=== PATIENT | female | born 1965 | race Caucasian/White ===

== ENCOUNTER 2017-06-18 19:32 | Emergency (ER) | payer OTHER ==
[~2017-06-18] VITALS: Ht 162.6 cm; Wt 72.6 kg
[~2017-06-18 19:32] MED LIST: CIPRO250 M2 PO; DIFLUCAN150 M1 PO; FLAGYL500 MG PO; HYDROXYZINE HCL25 M2 PO; LEVEMIR SUBQ; LIPITOR 20 MG T20 M1 PO; NEURONTIN 400400 M1 PO; NOVOLOG100 UNIT/1 SUBQ; NYSTATIN15 G3 TOP; OMEPRAZOLE20 M2 PO; PHENERGAN 25 MG25 M1 PO; ULTRAM 50MG TAB50 MG PO
[2017-06-18 20:03] LABS: INFLUENZA A ANTIGEN None Detected (None Detect); INFLUENZA B ANTIGEN None Detected (None Detect)
[2017-06-18] MEDS ORDERED: PROAIR HFA8.5 GM INH (21:09)
[2017-06-18] MEDS ORDERED: PROMETHAZINE/C118 ML PO (21:09)
[2017-06-18] MEDS ORDERED: PREDNISONE50 MG PO (21:09)
[2017-06-18] MEDS ORDERED: HYDROCODONE-AP1 EAC6 PO (21:42)
[2017-06-18 22:00] VITALS: BP 135/85
--- NOTE | 2017-06-19 14:29 | EKG ---
[place] [address] ELECTROCARDIOGRAM REPORT Name: PROSPER CHOW Room: [facility]#: [id number] Admission: 06/18/17 Attend Phys: Discharge: 06/18/17 Date of : 69 Report #: [id number] THIS REPORT FOR: //name// [facility] ED Test Date: 2017-06-18 Test Time: 19:40:36 Pat Name: PROSPER CHOW Department: Room: Gender: F Dobie Man: TV : 1965 Requested By: Azra Geronimo Order Number: [id number] Reading MD: Dieter Nagy Measurements Intervals Miller Rate: 118 P: 55 IA: 165 QRS: 19 QRSD: 81 T: 6 QT: 322 QTc: 452 Interpretive Statements Sinus tachycardia LAE, consider biatrial enlargement Probable anterior infarct, old Baseline wander in lead(s) V3,V6 Compared to ECG 04/03/2017 20:31:57 Sinus rhythm no longer present Electronically Signed On 06-19-2017 14:29:44 ROLLING ATTENDANT by Dieter Nagy [email or web address] <ELECTRONICALLY SIGNED> By: Dieter Nagy MD, [facility] 06/19/17 [facility]9 1940 Dieter Nagy MD, [facility] /EPI
== END 2017-06-18 22:01 | disposition home or self-care (01) ==
LOC: M.ERS 19:32
PROVIDERS: Emergency Medicine
DX: J06.9 Acute upper respiratory infection, unspecified (principal); R09.1 Pleurisy; I10 Essential (primary) hypertension; E78.00 Pure hypercholesterolemia, unspecified; E11.40 Type 2 diabetes mellitus with diabetic neuropathy, unspecified; F17.210 Nicotine dependence, cigarettes, uncomplicated; Z79.4 Long term (current) use of insulin; Z98.890 Other specified postprocedural states; Z90.710 Acquired absence of both cervix and uterus; Z90.49 Acquired absence of other specified parts of digestive tract

== ENCOUNTER 2017-10-17 21:33 | Emergency (ER) | payer OTHER ==
[~2017-10-17] VITALS: Ht 165.1 cm; Wt 72.6 kg
[~2017-10-17 21:33] MED LIST changes: +HYDROCODONE-AP1 EAC6 PO; +PREDNISONE50 MG PO; +PROAIR HFA8.5 GM INH; +PROMETHAZINE/C118 ML PO
[2017-10-17 21:56] LABS: URINE BILIRUBIN NEGATIVE (Negative); URINE BLOOD 2+ (Negative); URINE CLARITY CLEAR; URINE COLOR YELLOW; URINE GLUCOSE-RANDOM NEGATIVE (Negative); URINE KETONES NEGATIVE (Negative); URINE LEUKOCYTES-REFLEX TRACE (Negative); URINE NITRITE-REFLEX NEGATIVE (Negative); URINE PROTEIN TRACE (Negative); URINE UROBILINOGEN 0.2 E.U./dl (0.2-1.0)
[2017-10-17 22:20] LABS: CASTS None Seen /LPF (None Seen); MUCUS 0-3 Light strn/LPF (None Seen); SQUAMOUS >10 Many /LPF (0-3)
[2017-10-17 22:23] LABS: CRYSTALS None Seen /LPF (None Seen)
[2017-10-17 22:25] LABS: ABSOLUTE BASOPHILS 0.2 thou/uL (0.0-0.2); ABSOLUTE EOSINOPHILS 0.3 thou/uL (0.0-0.7); ABSOLUTE LYMPHOCYTES 3.3 thou/uL (0.8-5.3); ABSOLUTE MONOCYTES 0.9 thou/uL (0.0-1.2); ABSOLUTE NEUTROPHILS 6.6 thou/uL (1.6-8.1); BASOPHILS 1.3 %; EOSINOPHILS 3.1 %; HEMATOCRIT 42.9 % (37.0-47.0); HEMOGLOBIN 14.9 gm/dL (12.0-15.0); LYMPHOCYTES 29.4 %; MCHC 34.7 g/dL (28.0-37.0); MONOCYTES 7.7 %; MPV 8.5 fl. (7.2-11.1); NUCLEATED RBCS 0 /100WBC; PLATELET COUNT* 166 thou/uL (150-400); POLYS 58.5 %; RBC 4.67 mil/uL (4.20-5.00); RDW-CV 13.8 % (10.5-14.5); WBC 11.3 thou/uL (4.0-11.0)
[2017-10-17 22:33] LABS: CREATININE 0.9 mg/dL (0.6-1.3); POTASSIUM 4.7 mmol/L (3.5-5.1)
[2017-10-17 22:37] LABS: ALBUMIN 3.5 g/dL (3.4-5.0); TOTAL BILIRUBIN 0.4 mg/dL (<0.1-1.0); TOTAL PROTEIN 7.1 g/dL (6.4-8.2)
[2017-10-18] MEDS ORDERED: HYDROCODONE-AP1 EAC6 PO (00:50)
[2017-10-18] MEDS ORDERED: ZOFRAN ODT4 MG PO (00:50)
[2017-10-18] MEDS ORDERED: CIPROFLOXACIN500 M1 PO (00:50)
[2017-10-18 01:00] VITALS: BP 118/69
== END 2017-10-18 01:21 | disposition home or self-care (01) ==
LOC: M.ERS 21:33
PROVIDERS: Emergency Medicine
DX: N12 Tubulo-interstitial nephritis, not specified as acute or chronic (principal); E11.40 Type 2 diabetes mellitus with diabetic neuropathy, unspecified; I10 Essential (primary) hypertension; E78.00 Pure hypercholesterolemia, unspecified; F17.210 Nicotine dependence, cigarettes, uncomplicated; Z90.49 Acquired absence of other specified parts of digestive tract; Z90.710 Acquired absence of both cervix and uterus; Z79.4 Long term (current) use of insulin

== ENCOUNTER 2017-10-29 18:18 | Emergency (ER) | payer OTHER ==
[~2017-10-29] VITALS: Ht 165.1 cm; Wt 72.6 kg
[~2017-10-29 18:18] MED LIST changes: +CIPROFLOXACIN500 M1 PO; +ZOFRAN ODT4 MG PO
[2017-10-29] MEDS ORDERED: NOVOLOG100 UNIT/1 SUBQ (18:35)
[2017-10-29] MEDS ORDERED: IBUPROFEN 800800 M1 PO (18:36)
[2017-10-29 18:38] LABS: URINE BILIRUBIN NEGATIVE (Negative); URINE BLOOD NEGATIVE (Negative); URINE CLARITY CLEAR; URINE COLOR YELLOW; URINE GLUCOSE-RANDOM NEGATIVE (Negative); URINE KETONES NEGATIVE (Negative); URINE LEUKOCYTES-REFLEX NEGATIVE (Negative); URINE NITRITE-REFLEX NEGATIVE (Negative); URINE PROTEIN NEGATIVE (Negative); URINE SPECIFIC GRAVITY 1.015 (1.005-1.030); URINE UROBILINOGEN 0.2 E.U./dl (0.2-1.0)
[2017-10-29 18:49] LABS: ABSOLUTE BASOPHILS 0.1 thou/uL (0.0-0.2); ABSOLUTE EOSINOPHILS 0.3 thou/uL (0.0-0.7); ABSOLUTE LYMPHOCYTES 2.7 thou/uL (0.8-5.3); ABSOLUTE MONOCYTES 0.6 thou/uL (0.0-1.2); ABSOLUTE NEUTROPHILS 6.3 thou/uL (1.6-8.1); BASOPHILS 0.5 %; EOSINOPHILS 3.2 %; HEMATOCRIT 42.8 % (37.0-47.0); HEMOGLOBIN 14.9 gm/dL (12.0-15.0); LYMPHOCYTES 26.8 %; MCHC 34.9 g/dL (28.0-37.0); MCV 91.8 fL (80.0-100.0); MONOCYTES 6.2 %; MPV 8.7 fl. (7.2-11.1); NUCLEATED RBCS 0 /100WBC; PLATELET COUNT* 161 thou/uL (150-400); POLYS 63.3 %; RBC 4.66 mil/uL (4.20-5.00); RDW-CV 13.6 % (10.5-14.5)
[2017-10-29 18:56] LABS: CALCIUM 8.6 mg/dL (8.5-10.1); CREATININE 0.7 mg/dL (0.6-1.3); POTASSIUM 3.6 mmol/L (3.5-5.1)
[2017-10-29 19:00] LABS: ALBUMIN 3.4 g/dL (3.4-5.0); TOTAL BILIRUBIN 0.3 mg/dL (<0.1-1.0); TOTAL PROTEIN 7.1 g/dL (6.4-8.2)
[2017-10-29] MEDS ORDERED: HYDROCODONE-AP1 EAC6 PO (19:39)
[2017-10-29] MEDS ORDERED: PHENERGAN 25 MG25 M1 PO (19:39)
[2017-10-29 19:56] VITALS: BP 136/64
== END 2017-10-29 20:05 | disposition home or self-care (01) ==
LOC: M.ERS 18:18
PROVIDERS: Physician Assistant
DX: R10.9 Unspecified abdominal pain (principal); I10 Essential (primary) hypertension; E11.21 Type 2 diabetes mellitus with diabetic nephropathy; E78.00 Pure hypercholesterolemia, unspecified; F17.210 Nicotine dependence, cigarettes, uncomplicated; Z79.4 Long term (current) use of insulin; Z90.49 Acquired absence of other specified parts of digestive tract; Z90.710 Acquired absence of both cervix and uterus

== ENCOUNTER 2018-02-12 18:31 | Emergency (ER) | payer OTHER ==
[~2018-02-12] VITALS: Ht 165.1 cm; Wt 74.5 kg
[~2018-02-12 18:31] MED LIST changes: +IBUPROFEN 800800 M1 PO
[2018-02-12] MEDS ORDERED: TRAMADOL 50 MG50 MG PO (19:47)
[2018-02-12 20:25] VITALS: BP 129/64
== END 2018-02-12 20:25 | disposition home or self-care (01) ==
LOC: M.ERS 18:31
DX: M25.562 Pain in left knee (principal); F17.210 Nicotine dependence, cigarettes, uncomplicated; E11.40 Type 2 diabetes mellitus with diabetic neuropathy, unspecified; I10 Essential (primary) hypertension; E78.00 Pure hypercholesterolemia, unspecified; Z90.49 Acquired absence of other specified parts of digestive tract; Z90.710 Acquired absence of both cervix and uterus; Z79.4 Long term (current) use of insulin

== ENCOUNTER 2018-02-26 23:54 | Emergency (ER) | payer OTHER ==
[~2018-02-26] VITALS: Ht 165.1 cm; Wt 76.2 kg
[~2018-02-26 23:54] MED LIST changes: +TRAMADOL 50 MG50 MG PO
[2018-02-27] MEDS ORDERED: TORADOL 10 MG T10 MG PO (01:30)
[2018-02-27] MEDS ORDERED: KEFLEX500 M2 PO (01:30)
[2018-02-27 02:30] VITALS: BP 117/78
== END 2018-02-27 02:30 | disposition home or self-care (01) ==
LOC: M.ERS 23:54
DX: S40.861A Insect bite (nonvenomous) of right upper arm, initial encounter (principal); Z90.710 Acquired absence of both cervix and uterus; I10 Essential (primary) hypertension; E78.00 Pure hypercholesterolemia, unspecified; E11.40 Type 2 diabetes mellitus with diabetic neuropathy, unspecified; F17.210 Nicotine dependence, cigarettes, uncomplicated; Z79.4 Long term (current) use of insulin; Z90.49 Acquired absence of other specified parts of digestive tract; W57.XXXA Bitten or stung by nonvenomous insect and other nonvenomous arthropods, initial encounter; Y93.89 Activity, other specified; Y92.89 Other specified places as the place of occurrence of the external cause; Y99.8 Other external cause status

== ENCOUNTER 2018-03-01 12:03 | Emergency (ER) | payer OTHER ==
[~2018-03-01] VITALS: Ht 165.1 cm; Wt 73.9 kg
[~2018-03-01 12:03] MED LIST changes: +KEFLEX500 M2 PO; +TORADOL 10 MG T10 MG PO
[2018-03-01 13:35] LABS: ABSOLUTE BASOPHILS 0.1 thou/uL (0.0-0.2); ABSOLUTE EOSINOPHILS 0.4 thou/uL (0.0-0.7); ABSOLUTE LYMPHOCYTES 1.7 thou/uL (0.8-5.3); ABSOLUTE MONOCYTES 0.6 thou/uL (0.0-1.2); ABSOLUTE NEUTROPHILS 5.5 thou/uL (1.6-8.1); BASOPHILS 1.4 %; EOSINOPHILS 4.8 %; HEMATOCRIT 42.2 % (37.0-47.0); HEMOGLOBIN 14.6 gm/dL (12.0-15.0); LYMPHOCYTES 20.9 %; MCH 31.7 pg (26.0-34.0); MCHC 34.6 g/dL (28.0-37.0); MCV 91.4 fL (80.0-100.0); MONOCYTES 6.9 %; MPV 8.7 fl. (7.2-11.1); NUCLEATED RBCS 0 /100WBC; PLATELET COUNT* 157 thou/uL (150-400); RBC 4.61 mil/uL (4.20-5.00); RDW-CV 13.4 % (10.5-14.5); WBC 8.3 thou/uL (4.0-11.0)
[2018-03-01 13:43] LABS: CALCIUM 8.5 mg/dL (8.5-10.1); CREATININE 0.7 mg/dL (0.6-1.3); POTASSIUM 3.1 mmol/L (3.5-5.1)
[2018-03-01 14:03] LABS: ALBUMIN 3.2 g/dL (3.4-5.0); TOTAL BILIRUBIN 0.5 mg/dL (<0.1-1.0); TOTAL PROTEIN 6.8 g/dL (6.4-8.2)
[2018-03-01] MEDS ORDERED: NORCO 5-325 TA1 EACH PO (14:52)
[2018-03-01] MEDS ORDERED: BACTRIM DS TAB1 EAC1 PO (14:52)
[2018-03-01 15:18] VITALS: BP 157/79
== END 2018-03-01 15:13 | disposition home or self-care (01) ==
LOC: M.ERS 12:03
PROVIDERS: Physician Assistant Surgical
DX: T63.301A Toxic effect of unspecified spider venom, accidental (unintentional), initial encounter (principal); Y92.89 Other specified places as the place of occurrence of the external cause; E11.9 Type 2 diabetes mellitus without complications; I10 Essential (primary) hypertension; E78.00 Pure hypercholesterolemia, unspecified; Z90.49 Acquired absence of other specified parts of digestive tract; Z90.710 Acquired absence of both cervix and uterus; F17.210 Nicotine dependence, cigarettes, uncomplicated

== ENCOUNTER 2018-03-04 22:53 | Inpatient (IN) | payer OTHER ==
[~2018-03-04] VITALS: Ht 165.1 cm; Wt 73.9 kg
[~2018-03-04 22:53] MED LIST changes: +BACTRIM DS TAB1 EAC1 PO; +NORCO 5-325 TA1 EACH PO
[2018-03-04 23:05] VITALS: BP 187/63
[2018-03-04 23:43] LABS: URINE BILIRUBIN NEGATIVE (Negative); URINE BLOOD NEGATIVE (Negative); URINE CLARITY CLEAR; URINE COLOR YELLOW; URINE GLUCOSE-RANDOM NEGATIVE (Negative); URINE KETONES NEGATIVE (Negative); URINE LEUKOCYTES NEGATIVE (Negative); URINE NITRITE NEGATIVE (Negative); URINE PROTEIN NEGATIVE (Negative); URINE SPECIFIC GRAVITY <= 1.005 (1.005-1.030); URINE UROBILINOGEN 0.2 E.U./dl (0.2-1.0)
[2018-03-05 00:16] LABS: ABSOLUTE BASOPHILS 0.1 thou/uL (0.0-0.2); ABSOLUTE EOSINOPHILS 0.4 thou/uL (0.0-0.7); ABSOLUTE LYMPHOCYTES 3.2 thou/uL (0.8-5.3); ABSOLUTE MONOCYTES 0.8 thou/uL (0.0-1.2); ABSOLUTE NEUTROPHILS 6.5 thou/uL (1.6-8.1); BASOPHILS 1.2 %; EOSINOPHILS 3.4 %; HEMATOCRIT 44.6 % (37.0-47.0); HEMOGLOBIN 15.4 gm/dL (12.0-15.0); LYMPHOCYTES 28.9 %; MCHC 34.6 g/dL (28.0-37.0); MCV 92.7 fL (80.0-100.0); MONOCYTES 7.1 %; MPV 8.9 fl. (7.2-11.1); NUCLEATED RBCS 0 /100WBC; PLATELET COUNT* 186 thou/uL (150-400); POLYS 59.4 %; RBC 4.81 mil/uL (4.20-5.00); RDW-CV 13.6 % (10.5-14.5); WBC 10.9 thou/uL (4.0-11.0)
[2018-03-05 00:26] LABS: CALCIUM 8.4 mg/dL (8.5-10.1); CREATININE 0.8 mg/dL (0.6-1.3); POTASSIUM 3.4 mmol/L (3.5-5.1)
[2018-03-05 00:31] LABS: ALBUMIN 3.5 g/dL (3.4-5.0); TOTAL BILIRUBIN 0.3 mg/dL (<0.1-1.0); TOTAL PROTEIN 7.3 g/dL (6.4-8.2)
[2018-03-05 03:50] VITALS: BP 112/50
[2018-03-05 03:54] VITALS: BP 148/79
--- NOTE | 2018-03-05 05:01 | NUR ---
ARRIVED FROM ER TO ROOM 117. ALERT AND ORIENTED X4 BUT DROWSY. ORIENTED TO ROOM AND BED CONTROLS. CALL LIGHT WITHIN REACH. ASSESSMENT CHARTED.
--- NOTE | 2018-03-05 05:03 | NUR ---
PATIENT RESTING QUIETLY IN BED AT THIS TIME. CONTINUES ON IVF. IV ANTIBIODICS INFUSED. RIGHT UPPER ARM PINK AND SWOLLEN WITH SMALL BLISTER IN CENTER. CALL LIGHT WITHIN REACH.
[2018-03-05 08:06] LABS: HEMOGLOBIN 13.7 gm/dL (12.0-15.0); MCH 31.7 pg (26.0-34.0); MCHC 34.3 g/dL (28.0-37.0); MCV 92.6 fL (80.0-100.0); MPV 9.1 fl. (7.2-11.1); RBC 4.32 mil/uL (4.20-5.00); RDW-CV 13.7 % (10.5-14.5); WBC 7.3 thou/uL (4.0-11.0)
[2018-03-05 08:10] LABS: ALBUMIN 2.8 g/dL (3.4-5.0); CALCIUM 7.8 mg/dL (8.5-10.1); CREATININE 0.6 mg/dL (0.6-1.3); POTASSIUM 3.1 mmol/L (3.5-5.1); TOTAL BILIRUBIN 0.3 mg/dL (<0.1-1.0)
[2018-03-05 08:40] VITALS: BP 137/70
[2018-03-05 16:00] VITALS: BP 144/63
--- NOTE | 2018-03-05 16:00 | NUR ---
PATIENT CALLED OUT STATING THAT SHE HAS A DOG AT HOME THAT SHE NEEDS TO BE ABLE TO TAKE CARE OF. EXPLAINED TO PATIENT THAT SHE WAS STILL ON IV ANTIBIOTICS AND THAT THE PHYSICIAN WAS WAITING ON THE CULTURE OF THE WOUND FROM ADMIT. PATIENT CONTINUED TO STATE THAT ALL HER FAMILY IS IN [place] AND WOULDN'T BE ABLE TO TAKE CARE OR LET OUT HER DOG. ASKED PATIENT IF A FRIEND OR NEIGHBOR COULD LET HER DOG OUT, AND SHE STATED THAT THE ONLY TWO FRIENDS SHE HAS THAT ONE IS OUT OF STATE AND THE OTHER FRIEND WAS UNABLE TO LET THE DOG OUT. EXPLAINED TO PATIENT THAT THIS NURSE WOULD PAGE DR MARTIN TO UPDATE AND LET PHYSICIAN KNOW THE CIRCUMSTANCES, BUT THE PHYSICIAN MAY NOT DISCHARGE PATIENT. PHYSICIAN PAGED TO UPDATE ON PATIENT SITUATION.
--- NOTE | 2018-03-05 16:35 | NUR ---
SPOKE WITH DR MARTIN AND UPDATED ON PATIENT'S CIRCUMSTANCES WITH THE PATIENT'S DOG AT HOME AND NO ONE TO TAKE CARE OF THE PET WHILE PATIENT WAS IN THE HOSPITAL. DR MARTIN STATED SHE WOULD DISCHARGE PATIENT. THIS NURSE WENT INTO UPDATE PATIENT AND WAS ASKED TO COME BACK TO TALK TO PATIENT, UPON ENTERING PATIENT'S ROOM PATIENT WAS VISITING WITH FRIEND AT BEDSIDE.
--- NOTE | 2018-03-05 16:41 | NUR ---
EXPLAINED TO PATIENT THAT DR MARTIN WOULD GO AHEAD AND DISCHARGE PATIENT TONIGHT. EXPLAINED THAT IT WOULD BE A LITTLE BIT BEFORE ALL THE ORDERS WERE PUT IN THE COMPUTER BY DR MARTIN. PATIENT STATED SHE UNDERSTOOD.
[2018-03-05] MEDS ORDERED: DOXYCYCLINE 10100 MG PO (17:50)
[2018-03-05 18:20] VITALS: BP 144/63
--- NOTE | 2018-03-05 18:40 | NUR ---
PATIENT GIVEN DISCHARGE INSTRUCTIONS AT THIS TIME. PRESCRIPTION OF DOXYCYCLINE CALLED INTO PATIENT'S PHARMACY. PATIENT'S IV REMOVED. PATIENT VERBALIZED UNDERSTANDING IN REGARDS TO FOLLOW UP APPOINTMENTS, NEW MEDICATIONS, AND S/S TO CALL PHYSICIAN. PATIENT ESCORTED OFF NURSING UNIT VIA WHEELCHAIR TO HOME.
--- NOTE | 2018-03-06 08:44 | CON ---
[address] [address] CONSULTATION Name: PROSPER CHOW Room: [address] IN .R.#: [id number] Admission: 03/05/18 Attend Phys: Misael Allen MD Discharge: 03/05/18 Date of : 69 Report #: [id number] THIS REPORT FOR: //name// CC: Misael Allen [facility] physician/PCP DATE OF SERVICE: 03/05/2018 HISTORY OF PRESENT ILLNESS: A 52-year-old white woman suffered an insect - spider bite in right arm 7 days ago, treated with oral antibiotics, failed to improve, developed increasing rash around the right arm. She was evaluated in the Emergency Room and admitted and started on broad-spectrum antibiotic coverage. At present, she is alert, comfortable, in no distress; obviously with the right arm lesion. PAST MEDICAL HISTORY: Diabetes mellitus. Status post cholecystectomy, appendectomy, hysterectomy, right ankle fracture requiring open reduction and internal fixation, diabetic neuropathy, hypertension, dyslipidemia. DRUG ALLERGIES: None listed. MEDICATIONS: The patient is currently on treatment with enoxaparin, ceftriaxone 1 g IV daily, vancomycin 1250 mg daily, insulin lispro per sliding scale, atorvastatin, potassium and magnesium supplementation per protocol. She is also on pantoprazole, gabapentin, p.r.n. glucagon. SOCIAL HISTORY: See H and P, old records. FAMILY HISTORY: See H and P, old records. REVIEW OF SYSTEMS: Right arm discomfort and pain, blister formation, insect -- spider bite with surrounding rash. PHYSICAL EXAMINATION: GENERAL: A well-developed woman, non-toxic looking, in no distress. VITAL SIGNS: Afebrile, temperature 97.7, pulse 70, respirations 16, BP 137/70, height 5 feet 5 inches, weight 163 pounds. HEENT: Upper palate and pharynx normal. NECK: Supple. LUNGS: Clear. HEART: S1, S2. No gallop or murmur. ABDOMEN: Soft, no masses or megaly. PELVIC AND RECTAL: Deferred. EXTREMITIES: There is an area of insect, spider bite on the medial aspect of right arm surrounded by rash. No signs of infection. NEUROLOGIC: Grossly [place] [address] CONSULTATION Name: PROSPER CHOW Room: [address]#: [id number] Admission: 03/05/18 Attend Phys: Misael Allen MD Discharge: 03/05/18 Date of : 69 Report #: [id number] LABORATORY DATA: Sodium 143, potassium 3.1, BUN 8, creatinine 0.6, glucose 161. Albumin 2.8 g/dL. WBC normal at 10.9, down to 7.3 g/dL. Hemoglobin 13.7 g/dL, platelets 158,000. White blood cell count differential normal. Urinalysis negative. MICROBIOLOGY DATA: Arm culture pending. Blood cultures negative. ASSESSMENT: 1. Right arm spider bite with running rash, no signs of infection. 2. Diabetes mellitus. 3. Hypoalbuminemia. SUGGESTIONS: Recommend continued local wound care. May consider switching to oral antibiotics, may consider discontinuation of vancomycin and Rocephin. Entertain possibility of using oral systemic steroids, but favor continuation just with local wound care for time being. Discharge per hospitalist. Dr. Allen, thank you for requesting my suggestions. <ELECTRONICALLY SIGNED> By: Reynaldo De Anda MD 03/06/18 [id number] De Anda MD /nt
== END 2018-03-05 18:40 | disposition home or self-care (01) | DRG 603 ==
LOC: M.ERS 22:53 → M.TBA-ER 03-05 01:16 → M.ORTHSURG 03-05 03:48
PROVIDERS: Emergency Medicine; Nurse Practitioner Family; ADMIT Internal Medicine
PROC: 0H9BXZZ Drainage of Right Upper Arm Skin, External Approach (ICD-10-PCS; principal; 2018-03-04)
DX: L02.413 Cutaneous abscess of right upper limb (principal); L03.113 Cellulitis of right upper limb; E11.40 Type 2 diabetes mellitus with diabetic neuropathy, unspecified; I10 Essential (primary) hypertension; E78.00 Pure hypercholesterolemia, unspecified; F17.210 Nicotine dependence, cigarettes, uncomplicated; E11.65 Type 2 diabetes mellitus with hyperglycemia; T63.301A Toxic effect of unspecified spider venom, accidental (unintentional), initial encounter; Z90.89 Acquired absence of other organs; Z79.899 Other long term (current) drug therapy; Z90.49 Acquired absence of other specified parts of digestive tract; Z90.710 Acquired absence of both cervix and uterus; Z79.4 Long term (current) use of insulin; Y92.89 Other specified places as the place of occurrence of the external cause

== ENCOUNTER 2018-05-08 15:46 | Emergency (ER) | payer MEDICARE ==
[~2018-05-08] VITALS: Ht 165.1 cm; Wt 74.8 kg
[~2018-05-08 15:46] MED LIST changes: +DOXYCYCLINE 10100 MG PO
[2018-05-08] MEDS ORDERED: NEURONTIN 400400 M1 PO (16:12)
[2018-05-08 16:19] VITALS: BP 155/92
== END 2018-05-08 16:20 | disposition home or self-care (01) ==
LOC: M.ERS 15:46
DX: E11.40 Type 2 diabetes mellitus with diabetic neuropathy, unspecified (principal); I10 Essential (primary) hypertension; F17.210 Nicotine dependence, cigarettes, uncomplicated; Z79.4 Long term (current) use of insulin; E78.00 Pure hypercholesterolemia, unspecified; Z90.49 Acquired absence of other specified parts of digestive tract; Z90.710 Acquired absence of both cervix and uterus

== ENCOUNTER 2018-05-21 17:27 | Emergency (ER) | payer MEDICARE ==
[~2018-05-21] VITALS: Ht 162.6 cm; Wt 70.3 kg
[2018-05-21 18:36] VITALS: BP 136/77
== END 2018-05-21 20:06 | disposition home or self-care (01) ==
LOC: M.ERS 17:27
DX: R04.0 Epistaxis (principal); I10 Essential (primary) hypertension; E78.00 Pure hypercholesterolemia, unspecified; E11.40 Type 2 diabetes mellitus with diabetic neuropathy, unspecified; F17.210 Nicotine dependence, cigarettes, uncomplicated; Z90.49 Acquired absence of other specified parts of digestive tract; Z90.710 Acquired absence of both cervix and uterus; Z79.4 Long term (current) use of insulin

== ENCOUNTER 2018-05-23 00:09 | Emergency (ER) | payer MEDICARE ==
[~2018-05-23] VITALS: Ht 162.6 cm; Wt 70.3 kg
[2018-05-23] MEDS ORDERED: PHENERGAN 25 MG25 M1 PO (01:54)
[2018-05-23] MEDS ORDERED: KEFLEX500 M1 PO (01:54)
[2018-05-23] MEDS ORDERED: NORCO 7.5-3251 EACH PO (01:56)
[2018-05-23 02:01] VITALS: BP 132/69
== END 2018-05-23 02:03 | disposition home or self-care (01) ==
LOC: M.ERS 00:09
DX: J32.9 Chronic sinusitis, unspecified (principal); E78.00 Pure hypercholesterolemia, unspecified; I10 Essential (primary) hypertension; E11.40 Type 2 diabetes mellitus with diabetic neuropathy, unspecified; F17.210 Nicotine dependence, cigarettes, uncomplicated; Z79.4 Long term (current) use of insulin; Z90.49 Acquired absence of other specified parts of digestive tract; Z90.710 Acquired absence of both cervix and uterus

== ENCOUNTER 2018-07-20 20:52 | Emergency (ER) | payer MEDICARE ==
[~2018-07-20] VITALS: Ht 165.1 cm; Wt 70.3 kg
[~2018-07-20 20:52] MED LIST changes: +KEFLEX500 M1 PO; +NORCO 7.5-3251 EACH PO
[2018-07-20] MEDS ORDERED: TRAMADOL 50 MG50 MG PO (21:11)
[2018-07-20 21:45] VITALS: BP 166/80
== END 2018-07-20 21:45 | disposition home or self-care (01) ==
LOC: M.ERS 20:52
DX: M65.242 Calcific tendinitis, left hand (principal); F17.210 Nicotine dependence, cigarettes, uncomplicated; E11.40 Type 2 diabetes mellitus with diabetic neuropathy, unspecified; G62.9 Polyneuropathy, unspecified; I10 Essential (primary) hypertension; E78.00 Pure hypercholesterolemia, unspecified; Z79.4 Long term (current) use of insulin; Z90.49 Acquired absence of other specified parts of digestive tract; Z90.710 Acquired absence of both cervix and uterus

== ENCOUNTER 2020-12-23 19:58 | Emergency (ER) | payer OTHER ==
[~2020-12-23] VITALS: Ht 162.6 cm; Wt 64.0 kg
[2020-12-23 20:00] VITALS: BP 151/93
[2020-12-23] MEDS ORDERED: LISINOPRIL10 MG PO (20:07)
== END 2020-12-23 22:14 | disposition left against medical advice (07) ==
LOC: M.ERS 19:58
DX: Z53.21 Procedure and treatment not carried out due to patient leaving prior to being seen by health care provider (principal)

== ENCOUNTER 2021-06-04 02:38 | Emergency (ER) | payer OTHER ==
[~2021-06-04] VITALS: Ht 162.6 cm; Wt 63.5 kg
[~2021-06-04 02:38] MED LIST changes: +LISINOPRIL10 MG PO
[2021-06-04] MEDS ORDERED: OMEPRAZOLE 20 M20 M1 PO (02:44)
[2021-06-04 04:45] VITALS: BP 127/71
== END 2021-06-04 04:46 | disposition home or self-care (01) ==
LOC: M.ERS 02:38
DX: S90.01XA Contusion of right ankle, initial encounter (principal); E11.9 Type 2 diabetes mellitus without complications; I10 Essential (primary) hypertension; E78.00 Pure hypercholesterolemia, unspecified; F17.210 Nicotine dependence, cigarettes, uncomplicated; Z79.899 Other long term (current) drug therapy; Z90.710 Acquired absence of both cervix and uterus; Z90.49 Acquired absence of other specified parts of digestive tract; W22.8XXA Striking against or struck by other objects, initial encounter; Y93.89 Activity, other specified; Y92.89 Other specified places as the place of occurrence of the external cause; Y99.8 Other external cause status